=== PATIENT | female | born 1980 | race Caucasian/White ===

== ENCOUNTER 2016-07-20 00:24 | Emergency (ER) | payer OTHER ==
[~2016-07-20] VITALS: Ht 162.6 cm; Wt 136.5 kg
[~2016-07-20 00:24] MED LIST: BCPILLS PO; CITA40TA4 PO; CRG40 PO; IBUP-1050 PO; ONDA4TAB10 SL; OXYC1TAB3 PO; RANI150T3 PO; RIVA1TAB4 PO; XRL15 PO
[2016-07-20 00:35] VITALS: TEMP 37.9; Ht 162.6 cm; Wt 136.5 kg
[2016-07-20] MEDS ORDERED: KETOROLAC TROMETHAMINE 30 MG/ML VIAL IV STA (00:46)
[2016-07-20] MEDS ORDERED: SODIUM CHLORIDE 0.9% 1000ML 1,000 ML IV STA (00:46)
[2016-07-20 01:12] LABS: BASO % 0.2 %; BASO ABS # 0.01 K/uL (0-0.2); COMPLETE YES; EOS % 0.9 %; HEMATOCRIT 37.2 % (37-47); IG% 0.4 %; LYMPH % 10.6 %; LYMPH ABS # 0.49 K/uL (1.2-3.4); MEAN CORPUSCULAR HEMOGLOBIN 30.6 pg (25-34); MEAN CORPUSCULAR HGB CONC 34.4 g/dl (32-36); MEAN PLATELET VOLUME 10.1 fL (7.4-10.4); MONO % 14.9 %; PLATELET COUNT 209 K/uL (130-400); RED BLOOD COUNT 4.18 M/uL (4.2-5.4); WHITE BLOOD COUNT 4.63 K/uL (4.8-10.8)
[2016-07-20 01:30] LABS: BUN/CREATININE RATIO 20.2 (10-20); CREATININE 0.61 mg/dl (0.60-1.20); POTASSIUM 3.7 mmol/L (3.5-5.1)
[2016-07-20] MEDS ORDERED: OSELTAMIVIR PHOSPHATE 75 MG CAP PO STA (01:52)
[2016-07-20] MEDS ORDERED: OSEL75CA12 PO (01:57)
--- NOTE | 2016-07-20 01:58 | EMERGENCY ROOM VISIT NOTE ---
History Report prepared by Hellen: Ly Bethea Under the Supervision of: Dr. Red Downs D.O. First contact with patient: 00:40 Chief Complaint: FLU LIKE SX Stated Complaint: FLU LIKE SX History of Present Illness The patient is a 35 year old female who presents to the Emergency Room with complaints of worsening flu-like symptoms with onset earlier today. She rates her discomfort as a 6/10. The patient has been taking Tylenol and Motrin with minimal relief of her symptoms. Nothing seems to improve her symptoms. She has a fever, cough, some chest tightness, and has had body aches. She denies congestion, sorethroat. Additionally, the patient's daughter has been ill recently. Source of History: patient Onset: earlier today Position: other (global) Symptom Intensity: 6/10 Quality: other (flu like symptoms) Timing: worsening Modifying Factors (Relieving): other (none) Associated Symptoms: + cough, + fevers, No sorethroat Note: She has some chest tightness and has had body aches. She denies congestion, sorethroat. Review of Systems See HPI for pertinent positives & negatives. A total of 10 systems reviewed and were otherwise negative. Past Medical & Surgical Medical Problems: (1) AICD (2) Back muscle spasm (3) Back pain (4) Cardiac defibrillator in place (5) Cardiomyopathy (6) Exposure to blood or body fluid (7) Hypertrophic cardiomyopathy (8) [id number] (9) Left knee injury (10) Work related injury Surgical Problems: (1) H/O repair of rotator cuff (2) H/O wisdom tooth extraction (3) Hx of eye surgery (4) Hx of repair of rotator cuff (5) Hx of tonsillectomy Family History No pertinent family history Social History Smoking Status: Never Smoker Alcohol Use: occasionally Marital Status: Occupation Status: employed Current/Historical Medications Scheduled Control Pills ( Control Pills), 1 TAB PO HS Citalopram (Citalopram Hydrobromide), 40 MG PO DAILY Nadolol (Nadolol), 40 MG PO DAILY Allergies Coded Allergies: No Known Allergies (Unverified , 07/20/16) Physical Exam Vital Signs Date Time Temp Pulse Resp B/P Pulse Ox O2 Delivery O2 Flow Rate FiO2 07/20/16 00:35 37.9 107 22 168/96 95 Room Air Physical Exam CONSTITUTIONAL/VITAL SIGNS: Reviewed / noted above. GENERAL: Non-toxic in appearance. INTEGUMENTARY: Warm, dry, and [place]. HEAD: Normocephalic. EYES: without scleral icterus or trauma. ENT/OROPHARYNX: clear and moist. LYMPHADENOPATHY/NECK: Is supple without lymphadenopathy or meningismus. RESPIRATORY: Lungs clear and equal. CARDIOVASCULAR: Regular rate and rhythm. GI/ABDOMEN: Soft and nontender. No organomegaly or pulsatile mass. No rebound or guarding. Normal bowel sounds. EXTREMITIES: Warm and well perfused. BACK: No CVA tenderness. NEUROLOGICAL: Intact without focal deficits. PSYCHIATRIC: normal affect. MUSCULOSKELETAL: Normally developed with good muscle tone. Medical Decision & Procedures ER Provider Diagnostic Interpretation: X ray results and stated below per my interpretation. Chest x-ray: No acute disease, no pneumonia, no pneumothorax. Laboratory Results 07/20/16 01:00 Red Blood Count 4.18, Mean Corpuscular Volume 89.0, Mean Corpuscular Hemoglobin 30.6, Mean Corpuscular Hemoglobin Concent 34.4, Mean Platelet Volume 10.1, Neutrophils (%) (Auto) 73.0, Lymphocytes (%) (Auto) 10.6, Monocytes (%) (Auto) 14.9, Eosinophils (%) (Auto) 0.9, Basophils (%) (Auto) 0.2, Neutrophils # (Auto ) 3.38, Lymphocytes # (Auto) 0.49, Monocytes # (Auto) 0.69, Eosinophils # (Auto ) 0.04, Basophils # (Auto) 0.01 07/20/16 01:00 Test 07/20/16 01:00 07/20/16 01:02 White Blood Count 4.63 K/uL (4.8-10.8) Red Blood Count 4.18 M/uL (4.2-5.4) Hemoglobin 12.8 g/dL (12.0-16.0) Hematocrit 37.2 % (37-47) Mean Corpuscular Volume 89.0 fL (80-100) Mean Corpuscular Hemoglobin 30.6 pg (25-34) Mean Corpuscular Hemoglobin Concent 34.4 g/dl (32-36) Platelet Count 209 K/uL (130-400) Mean Platelet Volume 10.1 fL (7.4-10.4) Neutrophils (%) (Auto) 73.0 % Lymphocytes (%) (Auto) 10.6 % Monocytes (%) (Auto) 14.9 % Eosinophils (%) (Auto) 0.9 % Basophils (%) (Auto) 0.2 % Neutrophils # (Auto) 3.38 K/uL (1.4-6.5) Lymphocytes # (Auto) 0.49 K/uL (1.2-3.4) Monocytes # (Auto) 0.69 K/uL (0.11-0.59) Eosinophils # (Auto) 0.04 K/uL (0-0.5) Basophils # (Auto) 0.01 K/uL (0-0.2) RDW Standard Deviation 40.1 fL (36.4-46.3) RDW Coefficient of Variation 12.5 % (11.5-14.5) Immature Granulocyte % (Auto) 0.4 % Immature Granulocyte # (Auto) 0.02 K/uL (0.00-0.02) Anion Gap 14.0 mmol/L (3-11) Est Creatinine Clear Calc Drug Dose 181.1 ml/min Estimated GFR () 138.1 Estimated GFR (Non- 119.1 BUN/Creatinine Ratio 20.2 (10-20) Calcium Level 8.0 mg/dl (8.5-10.1) Influenza Type A Antigen Neg for Influ A (NEG) Influenza Type B Antigen Neg for Influ B (NEG) Laboratory results as stated above per my review. Medications Administered Medications (Trade) Dose Ordered Sig/Mine Route Start Time Stop Time Status Last Admin Dose Admin Sodium Chloride (Nss 1000ml) 1,000 ml @ 999 mls/hr Q1H1M STAT IV 07/20/16 00:46 07/20/16 01:46 DC 07/20/16 00:55 999 MLS/HR Ketorolac Tromethamine (Toradol Inj) 30 mg NOW STAT IV 07/20/16 00:46 07/20/16 00:48 DC 07/20/16 00:54 30 MG ED Course 0042: Previous medical records were reviewed. The patient was evaluated in room B5. A complete history and physical examination was performed. 0046: Toradol 30 mg IV, Sodium Chloride 1000 ml @ 999 mls/hr IV 0153: On reevaluation, the patient is doing well. I discussed the results and findings with the patient. She verbalized agreement of the treatment plan. The patient was discharged home. Medical Decision The patient is a 35 year old female who presents to the ED with complaints of flu-like symptoms. Further details listed above. Patient's exam was fairly unremarkable. Vital signs reveal a fever. Chest x-ray did not show acute disease. Flu swab was negative. CBC and chemistry panel was unremarkable. The patient was told results. She'll be started on Tamiflu as she has flux symptoms. She is felt to be stable for discharge. Excuse for work given. Differential includes viral illness, influenza, streptococcal pharyngitis, meningitis, pneumonia, sinusitis, UTI, pyelonephritis, otitis media. Impression Primary Impression: Influenza-like symptoms Scribe Attestation The scribe's documentation has been prepared under my direction and personally reviewed by me in its entirety. I confirm that the note above accurately reflects all work, treatment, procedures, and medical decision making performed by me. Departure Information Dispostion Home / Self-Care Prescriptions Oseltamivir (Tamiflu) 75 Mg Cap 75 MG PO BID, #10 CAP Prov: Red Downs D.O. 07/20/16 Referrals Rosalba Charles DO (PCP) Forms HOME CARE DOCUMENTATION FORM, IMPORTANT VISIT INFORMATION, Work Instructions Specific Date : 07/25/16 Patient Instructions My [facility] Additional Instructions Tamiflu as prescribed. Follow-up with your doctor for further care and evaluation in 1-2 days. Return to the emergency department for worsening or new symptoms or any concerns. You have been examined and treated today on an emergency basis only. This is not a substitute for, or an effort to provide, complete comprehensive medical care. It is impossible to recognize and treat all injuries or illnesses in a single emergency department visit. It is therefore important that you follow up closely with your doctor. Call as soon as possible for an appointment.
[2016-07-20 02:12] VITALS: BP 153/81; PULSE 99; O2SAT 95
--- NOTE | 2016-07-20 08:11 | DIAGNOSTIC IMAGING REPORT ---
CHEST ONE VIEW PORTABLE CLINICAL HISTORY: Fever. Illness. COMPARISON STUDY: Chest radiograph October 13, 2014. FINDINGS: Lung volumes are normal. There is no consolidation. A left pacemaker/AICD remains in place. Moderate cardiomegaly is unchanged. There is no evidence of pulmonary edema. Apparent hazy left lower lung opacity is likely artifactual. IMPRESSION: 1. Hazy left lower lung opacity. Overlying soft tissue artifact is favored. An area of consolidation could appear similar although is considered less likely. 2. No significant change in moderate cardiomegaly. Electronically signed by: Daniel Orellana M.D. 07/20/2016 8:09 AM Dictated Date/Time: 07/20/2016 8:07 AM
== END 2016-07-20 02:12 | disposition home or self-care (01) ==
LOC: C.EDB 00:25
DX: R68.89 Other general symptoms and signs (principal); R50.9 Fever, unspecified; R05 Cough; R52 Pain, unspecified; I42.2 Other hypertrophic cardiomyopathy; Z95.810 Presence of automatic (implantable) cardiac defibrillator; Z79.3 Long term (current) use of hormonal contraceptives; Z79.899 Other long term (current) drug therapy

== ENCOUNTER → 2016-10-06 | Outpatient (CLI) | payer OTHER ==
[~2016-10-06] MED LIST changes: +CYCL10TA6 PO; -IBUP-1050 PO; +METF500T5 PO; +NADO40TA PO; -ONDA4TAB10 SL; +OSEL75CA12 PO; -OXYC1TAB3 PO; -RANI150T3 PO; -RIVA1TAB4 PO; -XRL15 PO
[2016-10-06 12:35] LABS: CALCULATED INSULIN SENSITIVITY 0.27; GLUCOSE LOG 1.9638; INSULIN FASTING 54.5 mU/L (3-25); INSULIN LOG 1.7364
== END | disposition home or self-care (01) ==
LOC: C.LAB1850 09:53
PROVIDERS: ATTEND Obstetrics & Gynecology
DX: L83 Acanthosis nigricans (principal)

== ENCOUNTER → 2016-10-08 | Outpatient (CLI) | payer OTHER | END | disposition home or self-care (01) | LOC: C.LAB1850 08:31 | PROVIDERS: ATTEND Obstetrics & Gynecology | DX: E88.81 Metabolic syndrome and other insulin resistance (principal) ==

== ENCOUNTER 2017-03-22 00:51 | Emergency (ER) | payer OTHER ==
[~2017-03-22] VITALS: Ht 162.6 cm; Wt 129.4 kg
[~2017-03-22 00:51] MED LIST changes: -CYCL10TA6 PO; -METF500T5 PO; -NADO40TA PO; -OSEL75CA12 PO
[2017-03-22 00:59] VITALS: TEMP 36.8; Ht 162.6 cm; Wt 129.4 kg
[2017-03-22] MEDS ORDERED: OPTIRAY 320 IV PRN (01:15)
[2017-03-22] MEDS ORDERED: ONDANSETRON INJ 2 MG/ML 2 ML VIAL IV STA (01:29)
[2017-03-22] MEDS ORDERED: NADO40TA PO (01:29)
[2017-03-22 01:30] LABS: BASO % 0.2 %; BASO ABS # 0.02 K/uL (0-0.2); COMPLETE YES; EOS % 1.8 %; HEMATOCRIT 40.1 % (37-47); IG% 0.3 %; LYMPH % 25.4 %; LYMPH ABS # 3.04 K/uL (1.2-3.4); MEAN CELL VOLUME 90.1 fL (80-100); MEAN CORPUSCULAR HEMOGLOBIN 30.8 pg (25-34); MEAN CORPUSCULAR HGB CONC 34.2 g/dl (32-36); MEAN PLATELET VOLUME 10.2 fL (7.4-10.4); MONO % 8.6 %; NEUT % 63.7 %; PLATELET COUNT 252 K/uL (130-400); RED BLOOD COUNT 4.45 M/uL (4.2-5.4); WHITE BLOOD COUNT 11.99 K/uL (4.8-10.8)
[2017-03-22] MEDS ORDERED: METF500T5 PO (01:30)
[2017-03-22] MEDS ORDERED: CYCL10TA6 PO (01:31)
[2017-03-22 01:42] LABS: INR 0.9 (0.9-1.1); PROTHROMBIN TIME (PATIENT) 10.1 SECONDS (9.0-12.0)
[2017-03-22 01:48] LABS: BUN/CREATININE RATIO 17.8 (10-20); CALCIUM 8.4 mg/dl (8.5-10.1); CREATININE 0.59 mg/dl (0.60-1.20); POTASSIUM 3.8 mmol/L (3.5-5.1)
[2017-03-22 02:40] VITALS: BP 117/50
[2017-03-22 03:32] VITALS: PULSE 60; O2SAT 98
--- NOTE | 2017-03-22 06:51 | DIAGNOSTIC IMAGING REPORT ---
CHEST CTA for PULMONARY ARTERIES CT DOSE: 710.99 mGy.cm HISTORY: Right-sided chest pain. TECHNIQUE: Multiaxial CT images of the chest were performed following the intravenous administration of contrast to evaluate the pulmonary arteries. Maximal intensity projection images were also obtained. A dose lowering technique was utilized adhering to the principles of ALARA. COMPARISON STUDY: None. FINDINGS: There is a normal caliber thoracic aorta with no evidence for dissection. There is no evidence for pulmonary embolus. No pleural effusions. No pneumothorax. The liver and spleen are unremarkable. No mediastinal or hilar lymphadenopathy. The central airways are patent. The lungs are clear. Left-sided pacemaker. The heart is mildly enlarged with mild left ventricular hypertrophy. Hepatic steatosis. A 3.8 mm indeterminate pulmonary nodule within the left lower lobe on image 107. A 4 mm subpleural nodule within the right lower lobe on image 181. A 3 mm nodule within the right upper lobe on image 180. IMPRESSION: 1. No evidence for pulmonary embolus. 2. A total of 3 subcentimeter indeterminate pulmonary nodules with the largest measuring 4 mm. Please refer to the chart below for recommended follow-up. Please refer to below summary of Fleischner criteria recommendations for follow-up of incidental CT nodules (Juan Diego Gibbs, Guidelines for management of small pulmonary nodules detected on CT scans: A statement from the Fleischner Society, Radiology 237: [phone].) SOLID NODULES Solitary nodule size: <6 mm * Low risk patients: no follow-up needed * high risk patients: optional CT at 12 months Solitary nodule size: 6-8 mm * Low risk patients: follow-up at 6-12 months, then consider further follow-up at 18-24 months * high risk patients: initial follow-up CT at 6-12 months and then at 18-24 months if no change Solitary nodule size: >8 mm * either low or high risk patients - consider follow-up CT at 3 months, and/or CT-PET, and/or biopsy Multiple nodules size: <6 mm * Low risk patients: no routine follow-up * high risk patients: optional CT at 12 months Multiple nodules size: 6-8 mm * Low risk patients: follow-up at 3-6 months, then consider further follow-up at 18-24 months * high risk patients: follow-up at 3-6 months, then at 18-24 months if no change Multiple nodules size: >8 mm * Low risk patients: follow-up at 3-6 months, then consider further follow-up at 18-24 months * high risk patients: follow-up at 3-6 months, then at 18-24 months if no change Note: newly detected indeterminate nodule in persons 35 years of age or older. * Low risk patients: minimal or absent history of smoking and/or other known risk factors * high risk patients: history of smoking or of other known risk factors (e.g. first degree relative with lung cancer, or exposure to asbestos, radon, uranium) * if a nodule up to 8 mm is partly solid or is ground glass further follow-up is required after 24 months to exclude possible slow growing adenocarcinoma (JANNA) SUBSOLID NODULES Solitary pure ground-glass nodule * nodule size <6 mm - no CT follow-up required * nodule size >=6 mm - follow-up CT at 6-12 months, then every 2 years until 5 years Solitary part-solid nodule * nodule size <6 mm - no CT follow-up required * nodule size >=6 mm - follow-up CT at 3-6 months. If unchanged, and solid component remains <6 mm, then annual follow-up for 5 years Multiple subsolid nodules * nodule size <6 mm - follow-up CT at 3-6 months, consider further follow-up at 2 and 4 years if stable * nodule size >=6 mm - follow-up CT at 3-6 months, subsequent management based on the most suspicious nodule(s) Electronically signed by: Jerardo Peterson M.D. 03/22/2017 6:50 AM Dictated Date/Time: 03/22/2017 6:44 AM
--- NOTE | 2017-03-22 08:15 | EMERGENCY ROOM VISIT NOTE ---
History Report prepared by Hellen: Lenore Jorge Under the Supervision of: Dr. Mackenzie Bateman D.O. First contact with patient: 00:55 Chief Complaint: RIB PAIN Stated Complaint: RIGHT SIDED CHEST/RIB PAIN History of Present Illness The patient is a 36 year old female who presents to the Emergency Room with complaints of worsening rib pain starting seven hours ago. The patient states that she was at her cousin's house and ate dinner when she started to feel the pain. She reports that it started along her right spine and shoots to the front of her chest and around the side of her ribs. She reports taking a muscle relaxer and Ibuprofen with no relief. She notes that the pain is worse when she lays on her back or takes a deep breath. She notes she has a history of PEs and her last one was a year ago. She denies being on blood thinners, being on control, and straining herself. Source of History: patient Onset: seven hours ago Position: other (right ribs) Quality: other (shooting) Timing: worsening Modifying Factors (Worsening): breathing (deep), other (laying on her back) Note: The patient denies being on blood thinners, on control, and straining herself. Review of Systems See HPI for pertinent positives & negatives. A total of 10 systems reviewed and were otherwise negative. Past Medical & Surgical Medical Problems: (1) AICD (2) Back muscle spasm (3) Back pain (4) Cardiac defibrillator in place (5) Cardiomyopathy (6) Exposure to blood or body fluid (7) Hx pulmonary embolism (8) Hypertrophic cardiomyopathy (9) [id number] (10) Left knee injury (11) Work related injury Surgical Problems: (1) H/O repair of rotator cuff (2) H/O wisdom tooth extraction (3) Hx of eye surgery (4) Hx of repair of rotator cuff (5) Hx of tonsillectomy Family History No pertinent family history Social History Smoking Status: Never Smoker Alcohol Use: occasionally Drug Use: none Marital Status: Housing Status: lives with family Occupation Status: employed Current/Historical Medications Scheduled Control Pills ( Control Pills), 1 TAB PO HS Citalopram (Citalopram Hydrobromide), 40 MG PO HS Metformin Hcl Er (Glucophage Er), 500 MG PO BID Nadolol (Corgard), 40 MG PO HS Scheduled PRN Cyclobenzaprine Hcl (Flexeril), 10 MG PO TID PRN for SPASMS Allergies Coded Allergies: No Known Allergies (Unverified , 07/20/16) Physical Exam Vital Signs Date Time Temp Pulse Resp B/P (MAP) Pulse Ox O2 Delivery O2 Flow Rate FiO2 03/22/17 03:32 60 19 98 03/22/17 02:40 59 18 117/50 99 Room Air 03/22/17 00:59 36.8 65 18 157/90 98 Room Air Physical Exam HEENT: Head - normocephalic and atraumatic Pupils are equal, round, and reactive to light. Extraocular eye muscles are intact, and sclera are anicteric. Nose - moist nasal mucosa without discharge. Mouth - moist buccal mucosa. Oropharynx is nonerythematous and there is no tonsillar exudate or edema noted. Neck: Supple; no JVD, nuchal rigidity, cervical lymphadenopathy. Heart: Regular rate and rhythm. There is a normal S1 and S2 with no murmurs, clicks, or gallops appreciated. Lungs: Clear to auscultation bilaterally with no wheezes, rales, or rhonchi. Abdomen: Soft, completely nontender, nondistended, with good bowel sounds. There are no palpable pulsatile masses or hepatosplenomegaly. There is no guarding, rigidity, or rebound noted. Extremities: No evidence of cyanosis, clubbing, or edema. There are easily palpable peripheral pulses. Skin: warm and dry with good turgor and no rashes. Back: There is no reproducible discomfort with palpation of the right back. There were no skin lesions noted. Medical Decision & Procedures ER Provider Diagnostic Interpretation: CTA CHEST: No occlusive pulmonary embolus or thoracic aortic aneurysm. No active pneumonic process. Small hiatal hernia. Comparison study 07/25/2008 Radiologist: Rudy Arevalo M.D. Study ready at 02:31 and initial results transmitted at 03:14. Laboratory Results 03/22/17 01:22 Red Blood Count 4.45, Mean Corpuscular Volume 90.1, Mean Corpuscular Hemoglobin 30.8, Mean Corpuscular Hemoglobin Concent 34.2, Mean Platelet Volume 10.2, Neutrophils (%) (Auto) 63.7, Lymphocytes (%) (Auto) 25.4, Monocytes (%) (Auto) 8.6, Eosinophils (%) (Auto) 1.8, Basophils (%) (Auto) 0.2, Neutrophils # (Auto) 7.64, Lymphocytes # (Auto) 3.04, Monocytes # (Auto) 1.03, Eosinophils # (Auto) 0.22, Basophils # (Auto) 0.02 03/22/17 01:22 Test 03/22/17 01:22 White Blood Count 11.99 K/uL (4.8-10.8) Red Blood Count 4.45 M/uL (4.2-5.4) Hemoglobin 13.7 g/dL (12.0-16.0) Hematocrit 40.1 % (37-47) Mean Corpuscular Volume 90.1 fL (80-100) Mean Corpuscular Hemoglobin 30.8 pg (25-34) Mean Corpuscular Hemoglobin Concent 34.2 g/dl (32-36) Platelet Count 252 K/uL (130-400) Mean Platelet Volume 10.2 fL (7.4-10.4) Neutrophils (%) (Auto) 63.7 % Lymphocytes (%) (Auto) 25.4 % Monocytes (%) (Auto) 8.6 % Eosinophils (%) (Auto) 1.8 % Basophils (%) (Auto) 0.2 % Neutrophils # (Auto) 7.64 K/uL (1.4-6.5) Lymphocytes # (Auto) 3.04 K/uL (1.2-3.4) Monocytes # (Auto) 1.03 K/uL (0.11-0.59) Eosinophils # (Auto) 0.22 K/uL (0-0.5) Basophils # (Auto) 0.02 K/uL (0-0.2) RDW Standard Deviation 40.7 fL (36.4-46.3) RDW Coefficient of Variation 12.3 % (11.5-14.5) Immature Granulocyte % (Auto) 0.3 % Immature Granulocyte # (Auto) 0.04 K/uL (0.00-0.02) Prothrombin Time 10.1 SECONDS (9.0-12.0) Prothromb Time International Ratio 0.9 (0.9-1.1) Activated Partial Thromboplast Time 25.2 SECONDS (21.0-31.0) Partial Thromboplastin Ratio 1.0 Anion Gap 8.0 mmol/L (3-11) Est Creatinine Clear Calc Drug Dose 179.4 ml/min Estimated GFR () 138.6 Estimated GFR (Non- 119.6 BUN/Creatinine Ratio 17.8 (10-20) Calcium Level 8.4 mg/dl (8.5-10.1) Laboratory results per my review. Medications Administered Medications (Trade) Dose Ordered Sig/Mine Route Start Time Stop Time Status Last Admin Dose Admin Ondansetron HCl (Zofran Inj) 4 mg NOW STAT IV 03/22/17 01:29 03/22/17 01:30 DC 03/22/17 01:29 4 MG Procedure 0129: Ordered Zofran Inj 4 mg IV. ECG Indication: chest pain Rate (beats per minute): 61 Rhythm: normal sinus Findings: T-wave inversion (Lateral), no ectopy ED Course 0104: Past medical records reviewed. The patient was evaluated in room B6. A complete history and physical exam was performed. An IV lock was initiated and labs were drawn as above. A twelve-lead EKG was obtained as described above. She was observed on the bus driver/monitor and pulse oximeter. 0129: Ordered Zofran Inj 4 mg IV. The patient went for CT scan of the chest to rule out PE. 0303: Upon reevaluation, the patient is resting comfortably. I discussed findings and results with her. She verbalized agreement of the treatment plan. The patient was discharged home. Medical Decision The patient is a 36 year old female who presents to the Emergency Room with complaints of worsening rib pain starting seven hours ago. Differential diagnoses include PE, midback strain, GERD. LABS: White blood cell count 11.9 Stable H&H Normal renal function Glucose 109 Normal Coags Patient has a history of previous PE and is no longer on anticoagulation. She developed significant pain to the right side of her back and right chest. No obvious PE was noted on CT scan. O2 saturations were normal. The patient did take some NSAIDs prior to coming to the emergency department and states that she is feeling better at this time. Impression Primary Impression: Right-sided chest pain Additional Impression: Right-sided back pain Scribe Attestation The scribe's documentation has been prepared under my direction and personally reviewed by me in its entirety. I confirm that the note above accurately reflects all work, treatment, procedures, and medical decision making performed by me. Departure Information Dispostion Home / Self-Care Referrals No Doctor, Assigned (PCP) Forms HOME CARE DOCUMENTATION FORM, IMPORTANT VISIT INFORMATION, WORK / SCHOOL INSTRUCTIONS Patient Instructions My [facility] Additional Instructions Return to the ER for worsening symptoms Follow up with PCP if pain persists Use motrin for pain Problem Qualifiers Additional Impression: Right-sided back pain Back pain location: thoracic back pain Chronicity: acute Qualified Codes: M54.6 - Pain in thoracic spine
== END 2017-03-22 03:33 | disposition home or self-care (01) ==
LOC: C.EDB 00:53
DX: R07.9 Chest pain, unspecified (principal); M54.6 Pain in thoracic spine; I42.9 Cardiomyopathy, unspecified; Z95.810 Presence of automatic (implantable) cardiac defibrillator; Z86.711 Personal history of pulmonary embolism; Z98.818 Other dental procedure status; Z90.89 Acquired absence of other organs; Z98.890 Other specified postprocedural states

== ENCOUNTER → 2017-03-26 | Outpatient (CLI) | payer OTHER ==
[~2017-03-26] MED LIST changes: -CRG40 PO; +CYCL10TA6 PO; +METF500T5 PO; +NADO40TA PO
[2017-03-26 09:37] LABS: BASO % 0.2 %; BASO ABS # 0.02 K/uL (0-0.2); COMPLETE YES; EOS % 1.9 %; HEMATOCRIT 41.1 % (37-47); IG% 0.4 %; LYMPH % 35.7 %; LYMPH ABS # 3.71 K/uL (1.2-3.4); MEAN CELL VOLUME 90.3 fL (80-100); MEAN CORPUSCULAR HGB CONC 34.3 g/dl (32-36); MEAN PLATELET VOLUME 10.5 fL (7.4-10.4); MONO % 7.7 %; NEUT % 54.1 %; PLATELET COUNT 270 K/uL (130-400); RED BLOOD COUNT 4.55 M/uL (4.2-5.4); WHITE BLOOD COUNT 10.39 K/uL (4.8-10.8)
[2017-03-26 09:58] LABS: ESTIMATED AVERAGE GLUCOSE 97 mg/dl; HA1C FLAG Normal (Normal)
[2017-03-26 10:08] LABS: ALT/SGPT 28 U/L (12-78); BLOOD UREA NITROGEN 16 mg/dl (7-18); BUN/CREATININE RATIO 27.4 (10-20); CALCIUM 8.5 mg/dl (8.5-10.1); CARBON DIOXIDE 26 mmol/L (21-32); CHLORIDE 104 mmol/L (98-107); CHOLESTEROL 142 mg/dl (0-200); CREATININE 0.59 mg/dl (0.60-1.20); GLUCOSE 80 mg/dl (70-99); POTASSIUM 3.8 mmol/L (3.5-5.1); SODIUM 137 mmol/L (136-145); TRIGLYCERIDES 98 mg/dl (0-150); VERY LOW DENSITY LIPOPROT CALC 20 mg/dl
[2017-03-26 10:18] LABS: ALB/GLOB RATIO 0.8 (0.9-2); ALKALINE PHOSPHATASE 79 U/L (45-117); AST/SGOT 13 U/L (15-37); CHOLESTEROL/HDL RATIO 3.4; HDL CHOLESTEROL 42 mg/dl; LDL CHOLESTEROL CALCULATED 80 mg/dl
== END | disposition home or self-care (01) ==
LOC: C.LAB 08:26
PROVIDERS: ATTEND Nurse Practitioner Adult Health
DX: E88.81 Metabolic syndrome and other insulin resistance (principal)

== ENCOUNTER 2017-10-18 20:16 | Emergency (ER) | payer OTHER ==
[2017-10-18] VITALS (9 sets, daily range): BP systolic 129–176; BP diastolic 80–107; PULSE 71–83; TEMP 36.6; O2SAT 96–100; Ht 161.3 cm; Wt 140.0 kg
[~2017-10-18] VITALS: Ht 161.3 cm; Wt 140.0 kg
[2017-10-18] MEDS ORDERED: FENTANYL CITRATE INJ 50 MCG/1 ML 2 ML VIAL IV STA (20:30)
[2017-10-18] MEDS ORDERED: ONDANSETRON INJ 2 MG/ML 2 ML VIAL IV STA (20:32)
[2017-10-18] MEDS ORDERED: BUTACAP10 PO (20:44)
--- NOTE | 2017-10-18 20:51 | EMERGENCY ROOM VISIT NOTE ---
ED Visit Note First contact with patient: 20:24 CHIEF COMPLAINT: Ankle pain HISTORY OF PRESENT ILLNESS: This 37-year-old female patient presents to the emergency department, via wheelchair, approximately 1 hour after sustaining an injury to the left ankle and foot when she. The patient complains of pain along the outside of the ankle. The patient does report some pain of the foot. The patient rates the pain as sharp and 8/10. The patient is not able to bear weight on the foot. Constant pain, worse with movement, weight bearing, and the dependent position. No knee pain, the patient is able to move their toes. The patient was able to crawl on her knee after the injury. No numbness or weakness of the foot, no laceration. The patient has not had a previous fracture to this ankle. The patient has taken nothing for the pain. The patient denies any other injury. REVIEW OF SYSTEMS: A 6 system review of systems was completed with positives and pertinent negatives listed in the HPI. ALLERGIES: None MEDICATIONS: OCPs, Esgic, citalopram, Flexeril, Glucophage, nadolol PMH: Migraines SOCIAL HISTORY: Patient lives locally with family. She denies drug, tobacco, alcohol use. PHYSICAL EXAM: Vital Signs: Reviewed Nurse's notes, vital signs stable. GENERAL : This is a 37-year-old white female, no acute distress, but appears in pain, well-developed, well-nourished. MENTAL STATUS: Alert, oriented to person place and time, and cooperative. MUSCULOSKELETAL: The left ankle is swollen and tender over the medial, lateral malleolus and the anterior and posterior aspects , but the skin is intact. The patient is unable to tolerate ligamentous testing. There is no fifth metatarsal tenderness. There is no tenderness over the rest of the foot. There is no calf or tibia/fibular tenderness. There is visual deformity and suspicion for nondisplaced tibial fracture. The foot and toes are warm and well-perfused. Dorsalis pedis pulse 2+. Sensation to pain and light touch is intact. Capillary refill less than 2 seconds. RADIOLOGY: Pre-reduction: LEFT ANKLE 2 VIEWS HISTORY: left ankle pain, fall COMPARISON: None. FINDINGS: Oblique fracture within the distal shaft of the left fibula which demonstrates 4 mm of posterior displacement and 3 mm of lateral displacement. Diffuse soft tissue swelling throughout the ankle. There is also a displaced fracture involving the posterior malleolus and an essentially nondisplaced fracture of the medial malleolus. Mild widening of the anterior tibiotalar joint. Lateral and posterior calcaneal spurs. No radiopaque foreign bodies. IMPRESSION: 1. A displaced trimalleolar left ankle fracture described above. 2. There is widening of the anterior ankle joint. However, no dislocation. Electronically signed by: Jerardo Peterson M.D. 10/18/2017 9:39 PM Dictated Date/Time: 10/18/2017 9:37 PM Post-reduction: LEFT ANKLE 3 VIEWS HISTORY: LEFT ANKLE FX COMPARISON: None. FINDINGS: There is a displaced trimalleolar left ankle fracture with posterior and medial dislocation. Diffuse soft tissue swelling. Soft tissues are unremarkable. No radiopaque foreign bodies. IMPRESSION: Left ankle trimalleolar fracture/dislocation. Electronically signed by: Jerardo Peterson M.D. 10/18/2017 10:07 PM Dictated Date/Time: 10/18/2017 10:06 PM EMERGENCY DEPARTMENT COURSE: I examined the patient. IV access obtained, labs drawn. The patient was given 100 mcg of fentanyl. X-rays of the left ankle were reviewed by myself and Dr. Hernandez and read by radiology and reveal a trimalleolar fracture with posterior medial dislocation. I discussed the case with Dr. Hernandez. Conscious sedation was initiated for reduction. Please see his dictation regarding this procedure. Under conscious sedation, gentle traction was applied to the heel and the foot was dorsiflexed gently. The tibia did successfully relocate back into place with this maneuver. Postreduction x-rays were performed and reviewed by myself and Dr. Hernandez. A posterior/stirrup orthoglass splint was applied to the ankle under my direction and the position was satisfactory. Neurovascular status was rechecked and intact. The patient was instructed on the use of crutches. The patient was provided with a home pack of oxycodone to help with pain overnight. A prescription was sent to the pharmacy. The patient was appropriately monitored after conscious sedation and was tolerating p.o. fluids prior to discharge. Discharge instructions reviewed. The patient was discharged home in good condition. Note there was some confusion regarding x-rays. Apparently some x-rays did not upload properly into the system. The reports do seem to be swapped with the images. The images were reviewed by myself and Dr. Hernandez at bedside. I attest that I have personally reviewed the patient's current medication list. Patient was found to have normal blood pressure on screening and does not require follow-up. Etiologies such as soft tissue injury, fracture, dislocation, neurovascular compromise, compartment syndrome, as well as others were entertained. DIAGNOSIS: Trimalleolar fracture of the left ankle, fall on an incline The chart was completed utilizing [employer] Speech voice recognition software. Grammatical errors, random word insertions, pronoun errors, and incomplete sentences are an occasional consequence of this system due to software limitations, ambient noise, and hardware issues. Any formal questions or concerns about the content, text, or information contained within the body of this dictation should be directly addressed to the provider for clarification. Problem List Medical Problems: (1) AICD Status: Chronic (2) Back muscle spasm Status: Resolved (3) Back pain Status: Resolved (4) Cardiac defibrillator in place Status: Chronic (5) Cardiomyopathy Status: Chronic (6) Exposure to blood or body fluid Status: Resolved (7) Hypertrophic cardiomyopathy Status: Chronic (8) [id number] Status: Resolved (9) Left knee injury Status: Resolved (10) Work related injury Status: Resolved Surgical Problems: (1) H/O repair of rotator cuff Status: Resolved (2) H/O wisdom tooth extraction Status: Resolved (3) Hx of eye surgery Status: Resolved (4) Hx of repair of rotator cuff Status: Resolved (5) Hx of tonsillectomy Status: Resolved Current/Historical Medications Scheduled Control Pills ( Control Pills), 1 TAB PO HS Votjflzxel-Zwzeapoosrhcb-Xnenw (Esgic 325/50/40MG), 1 TAB PO PRN UD Citalopram (Citalopram Hydrobromide), 40 MG PO HS Metformin Hcl Er (Glucophage Er), 500 MG PO DAILY Nadolol (Corgard), 40 MG PO HS Scheduled PRN Cyclobenzaprine Hcl (Flexeril), 10 MG PO TID PRN for SPASMS Oxycodone Ir (Roxicodone Ir), 1-2 TAB PO Q4H PRN for Pain Allergies Coded Allergies: No Known Allergies (Unverified , 2/12/17) Vital Signs Date Time Temp Pulse Resp B/P (MAP) Pulse Ox O2 Delivery O2 Flow Rate FiO2 10/18/17 22:37 71 18 143/88 97 10/18/17 22:00 72 18 138/86 98 Room Air 10/18/17 21:51 76 22 176/107 96 Room Air 10/18/17 21:30 76 22 176/107 96 Room Air 10/18/17 21:25 73 23 176/107 100 Nasal Cannula 4.0 10/18/17 21:21 76 31 149/95 99 Nasal Cannula 4.0 10/18/17 21:16 75 26 139/91 100 Nasal Cannula 4.0 10/18/17 21:11 83 18 134/86 100 Nasal Cannula 4.0 10/18/17 21:05 74 16 129/80 99 Room Air 10/18/17 20:20 36.6 71 20 147/85 98 Room Air Laboratory Results 10/18/17 20:35 Red Blood Count 4.52, Mean Corpuscular Volume 90.7, Mean Corpuscular Hemoglobin 31.9, Mean Corpuscular Hemoglobin Concent 35.1, Mean Platelet Volume 10.5, Neutrophils (%) (Auto) 60.0, Lymphocytes (%) (Auto) 32.0, Monocytes (%) (Auto) 5.8, Eosinophils (%) (Auto) 1.6, Basophils (%) (Auto) 0.2, Neutrophils # (Auto) 7.27, Lymphocytes # (Auto) 3.89, Monocytes # (Auto) 0.71, Eosinophils # (Auto) 0.20, Basophils # (Auto) 0.02 10/18/17 20:35 Test 10/18/17 20:35 White Blood Count 12.14 K/uL (4.8-10.8) Red Blood Count 4.52 M/uL (4.2-5.4) Hemoglobin 14.4 g/dL (12.0-16.0) Hematocrit 41.0 % (37-47) Mean Corpuscular Volume 90.7 fL (80-100) Mean Corpuscular Hemoglobin 31.9 pg (25-34) Mean Corpuscular Hemoglobin Concent 35.1 g/dl (32-36) Platelet Count 284 K/uL (130-400) Mean Platelet Volume 10.5 fL (7.4-10.4) Neutrophils (%) (Auto) 60.0 % Lymphocytes (%) (Auto) 32.0 % Monocytes (%) (Auto) 5.8 % Eosinophils (%) (Auto) 1.6 % Basophils (%) (Auto) 0.2 % Neutrophils # (Auto) 7.27 K/uL (1.4-6.5) Lymphocytes # (Auto) 3.89 K/uL (1.2-3.4) Monocytes # (Auto) 0.71 K/uL (0.11-0.59) Eosinophils # (Auto) 0.20 K/uL (0-0.5) Basophils # (Auto) 0.02 K/uL (0-0.2) RDW Standard Deviation 40.8 fL (36.4-46.3) RDW Coefficient of Variation 12.3 % (11.5-14.5) Immature Granulocyte % (Auto) 0.4 % Immature Granulocyte # (Auto) 0.05 K/uL (0.00-0.02) Anion Gap 5.0 mmol/L (3-11) Est Creatinine Clear Calc Drug Dose 182.1 ml/min Estimated GFR () 136.9 Estimated GFR (Non- 118.1 BUN/Creatinine Ratio 19.5 (10-20) Calcium Level 9.1 mg/dl (8.5-10.1) Medications Administered Medications (Trade) Dose Ordered Sig/Mine Route Start Time Stop Time Status Last Admin Dose Admin Fentanyl Citrate (Fentanyl Inj) 100 mcg NOW STAT IV 10/18/17 20:30 10/18/17 20:32 DC 10/18/17 20:47 100 MCG Ondansetron HCl (Zofran Inj) 4 mg NOW STAT IV 10/18/17 20:32 10/18/17 20:33 DC 10/18/17 20:46 4 MG Hydromorphone HCl (Dilaudid Inj) 1 mg NOW STAT IV 10/18/17 20:57 10/18/17 20:58 DC 10/18/17 21:09 1 MG Ketamine HCl (Ketalar Steri-Vial Inj) 70 mg NOW STAT IV 10/18/17 20:57 10/18/17 20:59 DC 10/18/17 21:05 70 MG Metoclopramide HCl (Reglan Inj) 10 mg NOW STAT IV 10/18/17 20:57 10/18/17 20:59 DC 10/18/17 21:11 10 MG Propofol (Diprivan Iv Emulsion 20ml Vial) 70 mg NOW STAT IV 10/18/17 20:57 10/18/17 20:59 DC 10/18/17 21:05 70 MG Oxycodone HCl (Roxicodone Immediate Rel 5MG Home Pack) 1 homepack UD STAT PO 10/18/17 21:54 10/18/17 21:56 DC 10/18/17 22:36 1 HOMEPACK Departure Information Impression Primary Impression: Closed trimalleolar fracture of ankle Additional Impression: Fall (on)(from) incline, initial encounter Dispostion Home / Self-Care Condition GOOD Prescriptions Oxycodone Ir (Roxicodone Ir) 5 Mg Tab 1-2 TAB PO Q4H Y for Pain, #30 TAB For Initial Treatment Prov: Dana Verdugo PA-C 10/18/17 Referrals Faraz Winslow III, CRNP (PCP) Patient Instructions ED Consent, Procedural Sedation, ED Sedation Procedural Discon, [facility] Additional Instructions You were seen in the ED today for a trimalleolar fracture. This was successfully reduced in the ED. Please read conscious sedation handouts. DO NOT drive, drink alcohol, operate machinery, or perform dangerous activities today. You were given medications in the ER that can affect your ability to safely function or operate a vehicle. Oxycodone (OxyIR) 5mg: Take 1-2 pills every four hours as needed for breakthrough pain. Avoid alcohol, operating machinery or dangerous equipment, working on ladders or roofs, DRIVING, or situations where being under the influence may be dangerous. It is recommended to use an qdfp-ihf-jflqrsl stool softener such as Colace, 100mg twice daily while taking this medication to avoid constipation. Ibuprofen(Motrin, Advil) may be used for fever or pain. Use 600mg every six hours as needed. Take with food. Avoid using more than 2400mg in a 24 hour period. Do not use 2400mg per day for more than three consecutive days without physician direction. Prolonged inappropriate use can lead to stomach upset or ulcers. (AND/OR) Acetaminophen(Tylenol) may be used for fever or pain. Use 1000mg every six hours as needed. Avoid using more than 3000mg in a 24 hour period. Ice compresses for 20 minutes at a time four times daily for 2-3 days. Use the crutches as instructed. Avoid all weight bearing until instructed by ortho. Rest and elevate your injury. Do not get the splint wet. If your splint feels excessively tight, you have worsening pain, develop numbness or tingling, or your digits appear blue, loosen the kortney wrap. Then reapply the kortney wrap gently without removing the splint. If your symptoms are not quickly relieved return to the ER for re- evaluation. Return to the ER immediately for any numbness, tingling, severe pain, extreme swelling in the extremity or as needed. Call [facility], [phone], tomorrow to arrange follow up for your injury. Follow-up with your primary care physician in 2 to 3 days for a recheck of your current condition. Problem Qualifiers Primary Impression: Closed trimalleolar fracture of ankle Encounter type: initial encounter Laterality: left Qualified Codes: S82.852A - Displaced trimalleolar fracture of left lower leg, initial encounter for closed fracture
[2017-10-18] MEDS ORDERED: KETAMINE HCL INJ 50 MG/ML 10 ML VIAL IV STA (20:57)
[2017-10-18] MEDS ORDERED: METOCLOPRAMIDE HCL INJ 5 MG/ML 2 ML VIAL IV STA (20:57)
[2017-10-18] MEDS ORDERED: HYDROmorphone INJ 1 MG/ML SYR IV STA (20:57)
[2017-10-18] MEDS ORDERED: PROPOFOL IV EMULSION 10 MG/ML 20 ML VIAL IV STA (20:57)
[2017-10-18 21:05] LABS: BASO % 0.2 %; BASO ABS # 0.02 K/uL (0-0.2); EOS % 1.6 %; HEMOGLOBIN 14.4 g/dL (12.0-16.0); IG# 0.05 K/uL (0.00-0.02); LYMPH ABS # 3.89 K/uL (1.2-3.4); MEAN CELL VOLUME 90.7 fL (80-100); MEAN CORPUSCULAR HEMOGLOBIN 31.9 pg (25-34); MEAN CORPUSCULAR HGB CONC 35.1 g/dl (32-36); MEAN PLATELET VOLUME 10.5 fL (7.4-10.4); MONO % 5.8 %; MONO ABS # 0.71 K/uL (0.11-0.59); NEUT ABS # 7.27 K/uL (1.4-6.5); PLATELET COUNT 284 K/uL (130-400); RED CELL DISTRIBUTION WIDTH CV 12.3 % (11.5-14.5); RED CELL DISTRIBUTION WIDTH SD 40.8 fL (36.4-46.3); WHITE BLOOD COUNT 12.14 K/uL (4.8-10.8)
[2017-10-18 21:15] LABS: CALCIUM 9.1 mg/dl (8.5-10.1); CREATININE 0.6 mg/dl (0.60-1.20); POTASSIUM 4.2 mmol/L (3.5-5.1)
--- NOTE | 2017-10-18 21:36 | EMERGENCY ROOM VISIT NOTE ---
Pre-Mod Sedation Assessment General Date of Moderate Sedation: October 18, 2017. Vital Signs: Vital Signs Past 12 Hours Date Time Temp Pulse Resp B/P (MAP) Pulse Ox O2 Delivery O2 Flow Rate FiO2 10/18/17 20:20 36.6 71 20 147/85 98 Room Air Review Cardiovascular: regular rate, rhythm, no edema, no gallop, no JVD, no murmur, normal peripheral pulses Abdomen: normal bowel sounds, non tender, soft, no organomegaly, no pulsatile mass, normal rectal exam, occult blood negative Lungs: chest non-tender, lungs clear, normal breath sounds, no respiratory distress, no accessory muscle use Airway Class: III Pre-Sedation Airway Assessment Able to Visualize Vocal Cords: No Short Thick Neck: Yes Hx of Sleep Apnea: Yes Smoking Status: Never Smoker Mallampati Classification: Class III ASA Classification: Class II Procedure Planning Contraindications-for Mod Sed: None Yes Notes The planned sedation has been discussed with the patient and consent obtained. I have identified the patient, determined the appropriateness of sedation and have assessed the patient immediately prior to the procedure. All medicine(s) and interventions are by my order.
--- NOTE | 2017-10-18 21:38 | EMERGENCY ROOM VISIT NOTE ---
Post-Moderate Sedation Plan General Date of Moderate Sedation October 18, 2017. Vital Signs: Vital Signs Past 12 Hours Date Time Temp Pulse Resp B/P (MAP) Pulse Ox O2 Delivery O2 Flow Rate FiO2 10/18/17 20:20 36.6 71 20 147/85 98 Room Air Review - Discharge Plan Post Moderate Sedation Plan: On clinical assessment, the patient appears to have tolerated the conscious sedation without complications. Patient is recovering as anticipated. Patient will continue to be monitored by nursing and may be discharged when conscious sedation discharge criteria are met.
--- NOTE | 2017-10-18 21:40 | EMERGENCY ROOM VISIT NOTE ---
ED Visit Note First contact with patient: 20:24 Procedural Sedation Indication ankle fx dislocation /reduction. Total time: 25 minutes. Written consent was obtained after the risks and benefits were explained to the pt and family, including, but not limited to aspiration, allergic reaction, breathing difficulties, cardiac complications, vomiting, pain, event recall, bleeding, and/or infection. Pre-sedation examination and paperwork completed. The patient was on 100% oxygen via NRB prior to the procedure. Continous end tidal CO2 monitoring, pulse oximetry, and cardiac monitoring were utilized. Suction, airway equipment, medications, respiratory equipment, and appropriate personnel were prepared prior to the initiation of the procedure. A time out was taken. Sedation was achieved utilizing 1 mg of Dilaudid, 70 mg Propofol, 70 mg Ketamine. After I observed the patient had reached the appropriate level of sedation the main procedure was performed without complication. Sedation was discontinued and the monitoring continued. The patient recovered quickly from the effects of the medication without complication or adverse event.
--- NOTE | 2017-10-18 21:40 | DIAGNOSTIC IMAGING REPORT ---
LEFT ANKLE 2 VIEWS HISTORY: left ankle pain, fall COMPARISON: None. FINDINGS: Oblique fracture within the distal shaft of the left fibula which demonstrates 4 mm of posterior displacement and 3 mm of lateral displacement. Diffuse soft tissue swelling throughout the ankle. There is also a displaced fracture involving the posterior malleolus and an essentially nondisplaced fracture of the medial malleolus. Mild widening of the anterior tibiotalar joint. Lateral and posterior calcaneal spurs. No radiopaque foreign bodies. IMPRESSION: 1. A displaced trimalleolar left ankle fracture described above. 2. There is widening of the anterior ankle joint. However, no dislocation. Electronically signed by: Jerardo Peterson M.D. 10/18/2017 9:39 PM Dictated Date/Time: 10/18/2017 9:37 PM
[2017-10-18] MEDS ORDERED: OXYCODONE IR HOME PACK PO STA (21:54)
--- NOTE | 2017-10-18 22:09 | DIAGNOSTIC IMAGING REPORT ---
LEFT ANKLE 3 VIEWS HISTORY: LEFT ANKLE FX COMPARISON: None. FINDINGS: There is a displaced trimalleolar left ankle fracture with posterior and medial dislocation. Diffuse soft tissue swelling. Soft tissues are unremarkable. No radiopaque foreign bodies. IMPRESSION: Left ankle trimalleolar fracture/dislocation. Electronically signed by: Jerardo Peterson M.D. 10/18/2017 10:07 PM Dictated Date/Time: 10/18/2017 10:06 PM
[2017-10-18] MEDS ORDERED: OXYC1TAB3 PO (22:17)
[2017-10-19] MEDS ORDERED: OXYC1TAB3 PO (12:31)
[2017-10-19] MEDS ORDERED: ACET-1256 PO (12:31)
== END 2017-10-18 22:40 | disposition home or self-care (01) ==
LOC: C.EDB 20:16 → C.EDD 22:40
DX: S82.852A Displaced trimalleolar fracture of left lower leg, initial encounter for closed fracture (principal); W17.81XA Fall down embankment (hill), initial encounter; I42.9 Cardiomyopathy, unspecified; Z95.0 Presence of cardiac pacemaker

== ENCOUNTER → 2017-10-20 | Outpatient (CLI) | payer OTHER ==
[~2017-10-20] MED LIST changes: +ACET-1256 PO; +ASPI-320 PO; +BUTACAP10 PO; +OXYC1TAB3 PO
--- NOTE | 2017-10-20 18:21 | ECHOCARDIOGRAM REPORT ---
*NOTICE TO RECEIVING CONSTITUTION PARTY AGENCY This information is strictly Confidential and protected under [place] law. [place] law prohibits you from making any further disclosure of this information unless further disclosure is expressly permitted by the written consent of the person to whom it pertains or is authorized by law. A general authorization for the release of medical or other information is not sufficient for this purpose. Hospital accepts no responsibility if the information is made available to any other person, INCLUDING THE PATIENT. Interpretation Summary * Conclusions -- * 1. Normal left ventricular size with hyperdynamic systolic function. EF > 70%. No definite regional wall motion abnormalities, however cannot rule out wall motion abnormalities given poor image quality. Mild to moderate concentric left ventricular hypertrophy. No significant diastolic dysfunction. * 2. The left atrium is mildly dilated. * 3. There is mild mitral regurgitation. * 4. Technically difficult study. Poor image quality. Consider IV echo contrast in the future. * 5. Compared to prior study on 04/05/2013, prior study has better image quality. Prior study demonstrated severe hypertrophy of the anteroseptum. This was not well visualized on current study. Procedure Details * A complete two-dimensional transthoracic echocardiogram was performed (2D, M-mode, Doppler and color flow Doppler). * The study was technically difficult. * There were technical limitations due to patient'sbody habitus Left Ventricle * Normal left ventricular size with hyperdynamic systolic function. EF > 70%. No definite regional wall motion abnormalities, however cannot rule out wall motion abnormalities given poor image quality. Mild to moderate concentric left ventricular hypertrophy. No significant diastolic dysfunction. Right Ventricle * The right ventricle is not well visualized. * The right ventricular systolic function is normal as assessed by tricuspid annular plane systolic excursion (TAPSE) (normal >1.5 cm). Atria * The left atrium is mildly dilated. * Right atrium not well visualized. * There is no evidence of atrial septal defect, but resolution does not allow assessment for a patent foramen ovale. Mitral Valve * The mitral valve is grossly normal. * There is no mitral valve stenosis. * There is mild mitral regurgitation. Tricuspid Valve * The tricuspid valve is not well visualized. * There is no tricuspid stenosis. * Significant tricuspid regurgitation is absent. Aortic Valve * The aortic valve is not well visualized. * No hemodynamically significant valvular aortic stenosis. * There is no significant aortic regurgitation. Pulmonic Valve * The pulmonic valve is not well visualized. * There is no pulmonic valvular stenosis. Great Vessels * The aortic root is normal size. * Ascending aorta of normal dimension * Aortic arch of normal dimension. * Normal pulmonary venous flow pattern. Pericardium/Pleural * There is no pericardial effusion. Great Vessels * Normal inferior vena cava size and collapsability with sniff indicates a normal right atrial pressure of 3 mmHg MMode 2D Measurements and Calculations IVSd 1.5 cm LVIDd 5.0 cm LVPWd 1.3 cm IVS/LVPW 1.1 EDV(Teich) 121.0 ml EDV(cubed) 128.8 ml LV mass(C)d 284.1 grams LV mass(C)dI 119.8 grams/m\S\2 Ao root diam 2.9 cm Ao root area 6.5 cm\S\2 asc Aorta Diam 2.5 cm LVOT diam 2.0 cm LVOT area 3.3 cm\S\2 LVAd ap4 30.9 cm\S\2 LVLd ap4 9.1 cm EDV(MOD-sp4) 85.2 ml EDV(sp4-el) 89.0 ml LVAs ap4 12.1 cm\S\2 LVLs ap4 7.4 cm ESV(MOD-sp4) 16.8 ml ESV(sp4-el) 16.7 ml EF(MOD-sp4) 80.3 % EF(sp4-el) 81.2 % SV(MOD-sp4) 68.4 ml SI(MOD-sp4) 28.8 ml/m\S\2 SV(sp4-el) 72.3 ml SI(sp4-el) 30.5 ml/m\S\2 Doppler Measurements and Calculations MV E max michelle 102.6 cm/sec MV A max michelle 55.0 cm/sec MV E/A 1.9 MV dec time 0.22 sec Ao V2 max 213.8 cm/sec Ao max PG 18.3 mmHg Ao max PG (full) 6.8 mmHg Ao V2 mean 129.5 cm/sec Ao mean PG 8.3 mmHg Ao mean PG (full) 2.8 mmHg Ao V2 VTI 40.8 cm PRECIOUS(I,A) 2.4 cm\S\2 PRECIOUS(I,D) 2.4 cm\S\2 PRECIOUS(V,A) 2.6 cm\S\2 PRECIOUS(V,D) 2.6 cm\S\2 LV V1 max PG 11.5 mmHg LV V1 mean PG 5.5 mmHg LV V1 max 169.3 cm/sec LV V1 mean 104.8 cm/sec LV V1 VTI 30.1 cm SV(Ao) 265.7 ml SI(Ao) 112.0 ml/m\S\2 SV(LVOT) 98.6 ml SI(LVOT) 41.6 ml/m\S\2 PA V2 max 107.1 cm/sec PA max PG 4.6 mmHg
== END | disposition home or self-care (01) ==
LOC: C.CPL 14:47
PROVIDERS: ATTEND Physician Assistant Medical
DX: Z01.810 Encounter for preprocedural cardiovascular examination (principal)

== ENCOUNTER 2017-10-21 08:34 | Day surgery (SDC) | payer OTHER ==
[2017-10-19 12:32] VITALS: BMI 54.1
[2017-10-19 13:00] VITALS: BMI 54.0
--- NOTE | 2017-10-19 13:00 | PAT Medication Instructions ---
Service Date October 19, 2017. Current Home Medication List Acetaminophen (Tylenol), 1,000 MG PO QID PRN for Pain Control Pills ( Control Pills), 1 TAB PO HS Czfdrhjtww-Ekvyhlauvtliq-Zfefc (Esgic 325/50/40MG), 1 TAB PO PRN UD Citalopram (Citalopram Hydrobromide), 40 MG PO HS Cyclobenzaprine Hcl (Flexeril), 10 MG PO TID PRN for SPASMS Metformin Hcl Er (Glucophage Er), 500 MG PO QAM Nadolol (Corgard), 40 MG PO HS Oxycodone Ir (Roxicodone Ir), 1-2 TAB PO Q4H PRN for Severe Pain Medication Instructions For Your Scheduled Surgery - Hold the following medications the morning of surgery: Metformin Hcl Er (Glucophage Er), 500 MG PO QAM Etkzfxmfdp-Pkkdxmklsffph-Xrxys (Esgic 325/50/40MG), 1 TAB PO PRN UD Cyclobenzaprine Hcl (Flexeril), 10 MG PO TID PRN for SPASMS - Take the following medications the morning of surgery with a sip of water OTHERWISE NOTHING TO EAT OR DRINK AFTER MIDNIGHT: Oxycodone Ir (Roxicodone Ir), 1-2 TAB PO Q4H PRN for Severe Pain (may take if needed up to 4 hours prior to surgery) Acetaminophen (Tylenol), 1,000 MG PO QID PRN for Pain (may take if needed up to 4 hours prior to surgery) - Take the following medications as scheduled the night before surgery: Control Pills ( Control Pills), 1 TAB PO HS Nadolol (Corgard), 40 MG PO HS Citalopram (Citalopram Hydrobromide), 40 MG PO HS Oxycodone Ir (Roxicodone Ir), 1-2 TAB PO Q4H PRN for Severe Pain Metformin Hcl Er (Glucophage Er), 500 MG PO QAM Acetaminophen (Tylenol), 1,000 MG PO QID PRN for Pain Cyclobenzaprine Hcl (Flexeril), 10 MG PO TID PRN for SPASMS If you have any questions please call us at [phone] or [phone] or [phone]
[2017-10-19 15:09] LABS: BASO % 0.1 %; BASO ABS # 0.02 K/uL (0-0.2); EOS % 0.9 %; EOS ABS # 0.12 K/uL (0-0.5); HEMATOCRIT 38.1 % (37-47); HEMOGLOBIN 13.1 g/dL (12.0-16.0); IG# 0.04 K/uL (0.00-0.02); LYMPH ABS # 2.95 K/uL (1.2-3.4); MEAN CELL VOLUME 90.9 fL (80-100); MEAN CORPUSCULAR HEMOGLOBIN 31.3 pg (25-34); MEAN CORPUSCULAR HGB CONC 34.4 g/dl (32-36); MEAN PLATELET VOLUME 10.6 fL (7.4-10.4); MONO % 8.7 %; MONO ABS # 1.16 K/uL (0.11-0.59); NEUT ABS # 9.11 K/uL (1.4-6.5); PLATELET COUNT 267 K/uL (130-400); RED CELL DISTRIBUTION WIDTH CV 12.5 % (11.5-14.5); RED CELL DISTRIBUTION WIDTH SD 41.4 fL (36.4-46.3)
--- NOTE | 2017-10-20 14:02 | HISTORY & PHYSICAL EXAMINATION ---
DATE OF ADMISSION: 10/21/2017 CHIEF COMPLAINT: Left ankle injury. 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 She injured this on Thursday just 2 days ago. She was out fishing and slipped on the dock and injured her ankle. She had acute onset of pain. She could not walk afterwards. She was taken to the Emergency Room. X-rays revealed a left trimalleolar ankle fracture. She was splinted and referred to our clinic. The patient is indicated for surgical treatment. She has global ankle pain. No other injuries. PAST MEDICAL HISTORY: Past medical history is significant for: 1. Hypertrophic cardiomyopathy with a pacemaker in place, followed by [facility] in [place]. 2. Obesity with a BMI of 54. 3. Diabetes. PAST SURGICAL HISTORY: Include: 1. [place] teeth surgery. 2. Defibrillator placement. ALLERGIES: None. CURRENT MEDICINES: Include: 1. Oral contraceptive pill. 2. Corgard. 3. Celexa. 4. Metformin. 5. Muscle relaxant. 4. Fioricet. SOCIAL HISTORY: This is a 37-year-old female. She is . She works as an motorcycle service technician. 1-2 drinks per week. Does not smoke. FAMILY HISTORY: Significant for heart disease and diabetes. REVIEW OF SYSTEMS: Significant for cardiomyopathy with a pacemaker in place. She has no real cardiac symptoms. 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 No bleeding problems. Not on any blood thinner. No current chest pain or shortness of breath. No head injury, no loss of consciousness, no neck pain. PHYSICAL EXAMINATION: GENERAL: Physical exam shows a fairly large middle aged female. Looks in reasonably good health. HEENT EXAMINATION: Benign. NECK: Supple. No lymphadenopathy. LUNGS: Clear to auscultation. HEART: Regular rate and rhythm. ABDOMEN: Soft, nontender, nondistended. EXTREMITY EXAMINATION: Grossly neurovascularly intact except as follows: Examination of the left ankle reveals it to be reasonably well-aligned. There is some bruising diffusely medially and laterally and some anteriorly. Skin is intact. There are no blisters. She can flex and extend her toes with some pain. She is neurologically intact. Good distal pulse. X-RAYS: X-ray of the left ankle reviewed. It shows a left ankle trimalleolar ankle fracture with some slight subluxation posteriorly. ASSESSMENT: This is a 37-year-old female with underlying cardiomyopathy with a left trimalleolar ankle fracture. She is also significantly obese. This is certainly indicated for surgical management. PLAN: We discussed treatment options. We are going to take her to the operating room and do a left ankle ORIF. We will do this at the hospital due to her cardiomyopathy and her large size/BMI. The risks and benefits of this procedure were explained to the patient including but not limited to DVT, PE, , infection, neurological injury, vascular injury, bleeding problem, pain, limited range of motion, stiffness, failure to relieve her symptoms, incomplete relief of symptoms, need for further surgery in future, nonunion, malunion, symptomatic hardware, and arthritis. The patient understands and desires to proceed. Informed consent was obtained. We may need to place a syndesmosis screw based on the high fibular fracture. This will depend somewhat on the stability of the medial malleolus fixation. We will make that decision at the time of surgery. In the meantime, she will plan on DVT prophylaxis including thigh-high TEDs, SCDs, and aspirin. Hopefully, she will be able to be discharged to home, but she may need an overnight stay depending on how things go with her cardiac-casas.
[~2017-10-21] VITALS: Ht 162.6 cm; Wt 143.0 kg
[~2017-10-21 08:34] MED LIST changes: +ACETAMINOPHEN 500 MG TAB PO SCH; -ASPI-320 PO; +CEFAZOLIN 3000MG IV PUSH 22.5 ML IV SCH; +FAMOTIDINE 20 MG TAB PO SCH; +LACTATED RINGER'S 1000ML 1,000 ML IV SCH; +LACTATED RINGER'S 1000ML IV SCH; +ROPIVACAINE 0.5% 5 MG/ML 30 ML VIAL ONE
[2017-10-21 09:04] VITALS: BP 139/80; PULSE 66; TEMP 37; O2SAT 96; Ht 162.6 cm; Wt 143.0 kg
[2017-10-21] MEDS ORDERED: EpHEDrine SULFATE INJ 50 MG/ML AMP ONE (09:44)
[2017-10-21] MEDS ORDERED: ONDANSETRON INJ 2 MG/ML 2 ML VIAL ONE (09:44)
[2017-10-21] MEDS ORDERED: DEXAMETHASONE SOD INJ 4 MG/ML VIAL ONE ×2 (09:44→10:49)
[2017-10-21] MEDS ORDERED: NEOSTIGMINE METHYLSULFATE 5 MG/5 ML SYR ONE (09:44)
[2017-10-21] MEDS ORDERED: PHENYLEPHRINE HCL INJ 10 MG/ML VIAL ONE ×2 (09:44→10:47)
[2017-10-21] MEDS ORDERED: GLYCOPYRROLATE INJ 0.2 MG/ML VIAL ONE (09:44)
[2017-10-21] MEDS ORDERED: MIDAZOLAM HCL 1 MG/ML 2ML VIAL ONE ×2 (09:44→09:45)
[2017-10-21] MEDS ORDERED: LIDOCAINE HCL 2% 2 ML VIAL (20MG/ML) ONE (09:44)
[2017-10-21] MEDS ORDERED: SUCCINYLCHOLINE CHLORIDE 20 MG/ML 10 ML VIAL IV ONE (09:44)
[2017-10-21] MEDS ORDERED: FENTANYL CITRATE INJ 50 MCG/1 ML 2 ML VIAL ONE ×2 (09:44→12:12)
[2017-10-21] MEDS ORDERED: PROPOFOL IV EMULSION 10 MG/ML 20 ML VIAL ONE (09:44)
--- NOTE | 2017-10-21 10:10 | History & Physical Bridge Note ---
H&P Re-Evaluation Bridge Note: I have examined the patient, reviewed the History & Physical and in the interval since the performance of the History & Physical I have noted the following changes of clinical significance: No changes noted
[2017-10-21] MEDS ORDERED: CISATRACURIUM BESYLATE IV SOLN 2 MG/ML 10 ML VIAL ONE (10:47)
[2017-10-21] MEDS ORDERED: BUPIVACAINE 0.5 % 5 MG/1 ML MPF 30ML VIAL ONE (11:43)
[2017-10-21] MEDS ORDERED: EpINEphrine INJ 1MG/ML AMP 1 MG/ML AMP ONE (11:43)
[2017-10-21] MEDS ORDERED: SODIUM CHLORIDE 0.9% 1000ML 1,000 ML IV SCH (12:37)
--- NOTE | 2017-10-21 12:37 | [facility] Post Operative Brief Note ---
Immediate Operative Summary Operative Date October 21, 2017. Pre-Operative Diagnosis Left trimalleolar ankle fracture Post-Operative Diagnosis Same as preop Procedure(s) Performed Left Trimalleolar Ankle Fracture Open Reduction Internal Fixation Surgeon Dr. Szymanski Boatbuilder Wood Surgeon(s) Fredis Benson PA-C Estimated Blood Loss 20 ml Findings Consistent with Post-Op Diagnosis Fluids (cc crystalloids) 1200 cc Specimens None per Surgeon Drains None Anesthesia Type General Regional Complication(s) none Disposition Accompanied Pt To Recover: no Disposition: Recovery Room / PACU Overlapping Procedure I was present for: the critical portions of procedure. I was immediately available: during the entire case
--- NOTE | 2017-10-21 12:41 | DIAGNOSTIC IMAGING REPORT ---
L ANKLE MIN 3 VIEWS ROUTINE CLINICAL HISTORY: 37 years-old Female presenting with ORIF LT ANKLE. TECHNIQUE: 4 fluoroscopic image(s) recorded as part of an intraoperative procedure. COMPARISON: 10/18/2017. FINDINGS/IMPRESSION: There has been interval cortical compression plate and screw fixation of the distal fibular super syndesmotic fracture. 2 lag screw fixation of the medial malleolus fracture. The posterior malleolus fracture is not well assessed but appears in anatomic alignment. Please see surgical report for further details. Fluoroscopy dosage (mGy): 0.9. Fluoroscopy time: 23.2 seconds. Number of fluoroscopic spot images: 0. Electronically signed by: Richard Valente M.D. 10/21/2017 12:39 PM Dictated Date/Time: 10/21/2017 12:38 PM
[2017-10-21] MEDS ORDERED: ASPI-320 PO (12:43)
[2017-10-21] MEDS ORDERED: OXYC1TAB3 PO (12:43)
--- NOTE | 2017-10-21 12:44 | Discharge Instructions ---
Discharge Instructions Date of Service October 21, 2017. Admission Reason for Admission: Left Ankle Trimalleolar Fracture Discharge Discharge Diagnosis / Problem: Left Ankle ORIF Discharge Goals Goal(s): Decrease discomfort, Improve function, Increase independence, Improve disease control, Therapeutic intervention Activity Recommendations Activity Limitations: per Instructions/Follow-up section Weightbearing Status: Left weightbearing . Instructions / Follow-Up Instructions / Follow-Up Keep splint clean, dry, and in place. No weight left leg Elevate leg as much as possible. Return to clinic 2 weeks from surgery date. Current Hospital Diet Patient's current hospital diet: Discharge Diet Recommended Diet: Diabetes Type 2 Diet Procedures Procedures Performed: Left Trimalleolar Ankle Fracture Open Reduction Internal Fixation Pending Studies Studies pending at discharge: no Medical Emergencies . Who to Call and When: Medical Emergencies: If at any time you feel your situation is an emergency, please call 911 immediately. . Non-Emergent Contact Non-Emergency issues call your: Surgeon . "Provider Documentation" section prepared by Rudy Szymanski. .
[2017-10-21] MEDS ORDERED: OXYCODONE/ACETAMINOPHEN 5-325 TAB PO PRN ×2 (12:45)
[2017-10-21] MEDS ORDERED: ONDANSETRON INJ 2 MG/ML 2 ML VIAL IV PRN ×2 (12:45→13:00)
[2017-10-21] MEDS ORDERED: CEFAZOLIN IV 2,000 MG in DEXTROSE 5% 50ML 50 ML IV SCH (12:45)
[2017-10-21] MEDS ORDERED: KETOROLAC TROMETHAMINE 30 MG/ML VIAL ONE (12:57)
[2017-10-21] MEDS ORDERED: HYDROmorphone INJ 0.5 MG/0.5 ML SYR ONE (12:58)
[2017-10-21] MEDS ORDERED: EpHEDrine SULFATE INJ 50 MG/ML AMP IV PRN (13:00)
[2017-10-21] MEDS ORDERED: HYDROmorphone INJ 0.5 MG/0.5 ML SYR IV PRN (13:00)
[2017-10-21] MEDS ORDERED: ATROPINE SULFATE 0.1 MG/ML 5ML SYR IV PRN (13:00)
[2017-10-21] MEDS ORDERED: FLUMAZENIL 0.1 MG/1 ML 10 ML VIAL IV PRN (13:00)
[2017-10-21] MEDS ORDERED: ALBUTEROL 0.083% NEBU SOLN 3 ML VIAL INH PRN (13:00)
[2017-10-21] MEDS ORDERED: LABETALOL HCL IV 5 MG/ML 20ML IV PRN (13:00)
[2017-10-21] MEDS ORDERED: NALOXONE HCL 0.4 MG/1 ML VIAL/CARP IV PRN (13:00)
[2017-10-21] MEDS ORDERED: PROMETHAZINE HCL INJ 12.5 MG in SODIUM CHLORIDE 0.9% 50ML 50 ML IV PRN (13:00)
[2017-10-21] MEDS ORDERED: KETOROLAC TROMETHAMINE 30 MG/ML VIAL IV. PRN (13:00)
[2017-10-21] MEDS ORDERED: CEFAZOLIN SOD 2000MG/15 ML IV PUSH ONE (13:19)
--- NOTE | 2017-10-21 13:42 | Anesthesiology Progress Note ---
Anesthesia Post Op Note Date & Time October 21, 2017 at 13:42 Vital Signs Pain Intensity: 1 Vital Signs Past 12 Hours Date Time Temp Pulse Resp B/P (MAP) Pulse Ox O2 Delivery O2 Flow Rate FiO2 10/21/17 13:20 36.4 70 14 131/65 97 Nasal Cannula 2 10/21/17 13:10 67 14 139/75 97 Room Air 10/21/17 13:00 62 14 130/69 97 Oxymask 7 10/21/17 12:50 65 14 127/69 98 Oxymask 7 10/21/17 12:41 36.2 64 14 126/66 98 Oxymask 7 10/21/17 09:04 37.0 66 22 139/80 (99) 96 Room Air Notes Mental Status: alert / awake / arousable, participated in evaluation Pt Amnestic to Procedure: Yes Nausea / Vomiting: adequately controlled Pain: adequately controlled Airway Patency, RR, SpO2: stable & adequate BP & HR: stable & adequate Hydration State: stable & adequate Anesthetic Complications: no major complications apparent
[2017-10-21 13:45] VITALS: BP 129/63; PULSE 73; TEMP 36.3; O2SAT 95
[2017-10-21 14:21] VITALS: BP 118/64; PULSE 69; TEMP 36.8; O2SAT 94
[2017-10-21 14:51] VITALS: BP_SYST 117; BP_SYST 119; BP_DIAS 60; BP_DIAS 66; PULSE 77; TEMP 36.9; O2SAT 95
--- NOTE | 2017-10-21 14:56 | OPERATIVE REPORT ---
DATE OF OPERATION: 10/21/2017 SURGEON: Rudy Szymanski MD INDUSTRIAL CUSTODIAN: Fredis Benson PA-C PREOPERATIVE DIAGNOSIS: Left trimalleolar ankle fracture and dislocation. POSTOPERATIVE DIAGNOSIS: Left trimalleolar ankle fracture and dislocation. PROCEDURE PERFORMED: Open reduction and internal fixation of left trimalleolar ankle fracture and dislocation. COMPLICATIONS: None. ESTIMATED BLOOD LOSS: 20 mL. TOURNIQUET TIME: 74 minutes at 350 mmHg. ANESTHESIA: General. SPECIMENS: None. OPERATIVE INDICATIONS: The patient is a 37-year-old female who injured her ankle over the weekend. She was out fishing and slipped on the dock and had acute onset of pain and deformity to her ankle. She was taken to the ER where she underwent a closed reduction and splinting. The patient indicated for surgical fixation. The patient is morbidly obese with a BMI of 50+ and also has underlying cardiac disease with hypertrophic cardiomyopathy and a pacemaker in place. The patient was indicated for surgery done in the main hospital as a result. OPERATIVE IMPLANTS: Medial side implants consisted of: Synthes 4.0 partially threaded long threaded cannulated screws with washers x2. Lateral side implants consisted of: 1. Synthes 10-hole 1/3 semitubular stainless steel plate. 2. Synthes 7-hole stainless steel semitubular locking plate. 3. 3.5 fully threaded cortical screws x8. 4. 3.5 cortical locking screws x2. OPERATIVE PROCEDURE: The patient was taken to the operating room, identified, and placed on the operating table in the supine position. All contact areas were appropriately padded. IV antibiotics were provided by the anesthesia team. A general anesthetic was implemented by the anesthesia team. A left thigh tourniquet was then placed. I then removed the splint from the left leg and scrubbed the left lower extremity with Hibiclens. I then prepped it with ChloraPrep and then draped the left lower extremity in the usual sterile fashion. The left leg was elevated and exsanguinated with an Esmarch and the tourniquet was placed at 350 mmHg. A medial approach to the ankle was then performed through a slightly curvilinear incision over the medial malleolus. Sharp dissection was carried out through the subcutaneous tissues directly down the fracture site. I did open the fracture site up and removed some periosteum. I then reduced the fracture anatomically and held it with a reduction clamp. I then placed 2 wires with cannulated screws across the fracture site and verified their position fluoroscopically. I then placed 2 partially threaded long threaded cannulated screws with washers over each of the guidewire. This provided excellent medial fixation despite the fairly small fragment. Attention was drawn toward the lateral fixation. A direct lateral approach to the fibula was then performed through a longitudinal incision. Sharp dissection was carried out through the subcutaneous tissues down to the level of the periosteum. I incised the periosteum over the fibula. The fracture was comminuted and I could not place an interfragmentary screw. Therefore, I held the fracture and reduced in an anatomic alignment. Due to the patient's large size and the comminuted nature, I did elect to use overlapping plates to increase the strength of the fracture site. I used a 7-hole plate over a 10-hole plate in case I needed to place a syndesmosis screw distally. I then fixed the plate to the lateral aspect of the fibula proximally with a with eight 3.5 cortical screws. I then fixed it distally with two 3.5 cortical locking screws with a purpose of making the screw heads less prominent distally. X-ray was brought in. The fracture was anatomically aligned. The mortise was restored. I stressed the ankle quite vigorously and there was no medial clear space gapping. I also stressed it posteriorly under fluoroscopy and there was no posterior gapping or posterior subluxation or tendency for the ankle to subluxate posteriorly at all. Therefore, I elected not to place a syndesmosis screw. I irrigated the wound extensively and attention then drawn toward closing. I did inject locally with 30 mL of 0.5% Marcaine with epinephrine. The tourniquet was then let down for a tourniquet time of 74 minutes. Hemostasis was assured with use of electrocautery. The deep tissues medially and periosteum over the medial screws were repaired with 2-0 Vicryl suture in a buried interrupted fashion. The subcutaneous tissues were closed with 3-0 Dexon suture in a buried interrupted fashion. The skin was closed with 3-0 nylon suture in simple fashion. The lateral periosteum was closed with 0 Vicryl suture in a [id number] fashion. The subcutaneous tissues were then closed with a combination of both 2-0 Vicryl and 3-0 Vicryl suture in a buried interrupted fashion. The skin was closed with 3-0 nylon suture in simple fashion. The leg was then cleaned and dried and a sterile dressing of Xeroform, 4 x 4's, sterile cast padding and a well-padded posterior and stirrup splint were applied. The patient was then brought out of general anesthesia and transferred to the recovery room in stable condition. The patient tolerated the procedure with no complication. All needle and sponge counts were correct at the end of the operation. I attest to the content of the Intraoperative Record and any orders documented therein. Any exception s are noted below.
[2017-10-21 15:50] VITALS: BP 117/60; PULSE 85; TEMP 37; O2SAT 94
== END 2017-10-21 15:55 | disposition home or self-care (01) ==
LOC: C.ACU 08:34
PROVIDERS: ATTEND Orthopaedic Surgery Sports Medicine
DX: S82.852A Displaced trimalleolar fracture of left lower leg, initial encounter for closed fracture (principal); W18.40XA Slipping, tripping and stumbling without falling, unspecified, initial encounter; I42.2 Other hypertrophic cardiomyopathy; E11.9 Type 2 diabetes mellitus without complications; E66.01 Morbid (severe) obesity due to excess calories; Z68.43 Body mass index [BMI] 50.0-59.9, adult; Z86.718 Personal history of other venous thrombosis and embolism; Z95.810 Presence of automatic (implantable) cardiac defibrillator; Z79.3 Long term (current) use of hormonal contraceptives; Z82.49 Family history of ischemic heart disease and other diseases of the circulatory system; Z83.3 Family history of diabetes mellitus